=== PATIENT | male | born 1965 | race Caucasian/White ===

== ENCOUNTER 2017-03-04 02:50 | Emergency (ER) | payer OTHER ==
[2017-03-04] MEDS ORDERED: Ketorolac Tromethamine 60 MG/2 ML VIAL ONE (04:13)
--- NOTE | 2017-03-04 09:06 | ULT ---
PRELIMINARY REPORT/[facility]/EMERGENCY AFTER HOURS PROCEDURE: EXAM: US Scrotum CLINICAL HISTORY: 51 years old, male; Pain; Scrotum pain; Patient HX: Swelling x 5 days; Pain x 2; No trauma; Patient is a truck mechanic; Additional info: Na TECHNIQUE: Real-time ultrasound of the scrotum with color Doppler and image documentation. COMPARISON: No relevant prior studies available. FINDINGS: Right testicle: The right testicle measures 3.1 x 3.8 x 2.9 cm is and is normal in echogenicity and blood flow. No torsion. Left testicle: The left testicle measures 3.0 x 4.0 x 2.0 cm and is normal in echogenicity and vascu larity. No torsion. Epididymides: Unremarkable. Scrotum: A large right hydrocele is present. A small hydrocele is seen on the left. IMPRESSION: Large right and small left hydrocele. Normal sonographic evaluation of the testicles. Thank you for allowing us to participate in the care of your patient. Dictated and Authenticated by: Nicol Ontiveros MD 03/04/2017 5:19 AM Central Time ([place] \T\ [place]) FINAL REPORT BILATERAL TESTICULAR ULTRASOUND WITH DOPPLER: (HICKMAN SCALE, COLOR FLOW, AND SPECTRAL DOPPLER) DATE: 03/04/17 FINDINGS/IMPRESSION: I agree with the preliminary report given by Dr. Nicol Ontiveros of [facility]. POS: [facility]
== END 2017-03-04 06:15 | disposition home or self-care (01) ==
LOC: MADERS 02:50
DX: N43.3 Hydrocele, unspecified (principal); F17.220 Nicotine dependence, chewing tobacco, uncomplicated
CPT/HCPCS: 76870; 93976; 96372; J1885